=== PATIENT | male | born 1960 | race Caucasian/White ===

== ENCOUNTER 2019-02-25 08:19 | Day surgery (SDC) | payer OTHER ==
[2019-02-10 15:01] VITALS: BMI 27.8
[2019-02-25 09:44] VITALS: TEMP 97.5
[2019-02-25 10:55] VITALS: BP 135/72; PULSE 47
--- NOTE | 2019-02-26 17:39 | PATH ---
Surgical Pathology Report Patient Name: JOMAR BRAN [facility]. Rec. #: [id number] /Age/Gender: 1960 (Age: 59) / M Account: [id number] Location: [facility]-ENDOSCOPY Taken: 02/25/2019 Received: 02/25/2019 Reported: 02/26/2019 Physicians: Meliton Borden M.D. Specimen(s) Received A: POLYP TRANSVERSE COLON B: POLYP SIGMOID Clinical History History of colon polyp Postoperative diagnosis: Colon polyp Final Diagnosis A. TRANSVERSE COLON, POLYP, BIOPSY: POLYPOID COLONIC MUCOSA WITH SMALL LYMPHOID AGGREGATE. B. SIGMOID COLON, POLYP, BIOPSY: COLONIC MUCOSA WITH MILD SUPERFICIAL HYPERPLASTIC FEATURES. Electronically Signed Leda Regan M.D. Gross Description A. Received in formalin, labeled "polyp transverse colon" is a malave, irregular portion of soft tissue measuring 0.3 cm. in greatest dimension. The specimen is submitted in toto in one cassette. B. Received in formalin, labeled "polyp sigmoid colon" is a malave, irregular portion of soft tissue measuring 0.3 cm. in greatest dimension. The specimen is submitted in toto in one cassette. DL/02/25/2019 saudi02/25/2019
== END 2019-02-25 10:35 | disposition home or self-care (01) ==
LOC: JASU-ENDO 08:19
PROVIDERS: ATTEND Internal Medicine Gastroenterology
PROC: 0DBL8ZX Excision of Transverse Colon, Via Natural or Artificial Opening Endoscopic, Diagnostic (ICD-10-PCS; 2019-02-25)
PROC: 0DBN8ZX Excision of Sigmoid Colon, Via Natural or Artificial Opening Endoscopic, Diagnostic (ICD-10-PCS; principal; 2019-02-25 09:45)
DX: Z12.11 Encounter for screening for malignant neoplasm of colon (principal); Z86.010 Personal history of colon polyps; D12.5 Benign neoplasm of sigmoid colon; D12.3 Benign neoplasm of transverse colon; I10 Essential (primary) hypertension; E11.9 Type 2 diabetes mellitus without complications; Z79.84 Long term (current) use of oral hypoglycemic drugs
CPT/HCPCS: 82962; 88305-TC

== ENCOUNTER 2020-02-24 07:12 | Inpatient (IN) | payer OTHER ==
[2020-02-24] MEDS ORDERED: SODIUM CHLORIDE 1,000 ML IV STA (07:34)
[2020-02-24 08:17] LABS: BASO % 0.6 % (0-2.0); EOS % 1.2 % (0-4.5); HEMATOCRIT 43.3 % (35.4-49); HEMOGLOBIN 15.1 GM/dL (11.7-16.9); MCH 29.8 pg (25.7-33.7); MCHC 34.8 g/dl (32.0-35.9); MEAN CELL VOLUME 85.6 fl (80-96); MONO % 6.3 % (3.8-10.2); NEUT % 73.9 % (42.8-82.8); PLATELET COUNT 159 K/MM3 (134-434); RBC 5.06 M/mm3 (4.00-5.60); RDW 13.4 % (11.9-15.9); WHITE BLOOD COUNT 7.3 K/mm3 (4.0-10.0)
[2020-02-24 08:24] LABS: INR 0.97 (0.83-1.09); PROTHROMBIN TIME (PATIENT) 11.7 SEC (9.7-13.0)
[2020-02-24 08:26] LABS: ACTIVATED PTT 32.8 SECONDS (25.2-36.5)
[2020-02-24 08:29] LABS: EPI CELLS 2 /uL (0-25.1); HYALINE CASTS 0 /uL (0-3.1); URINE APPEARANCE CLEAR; URINE BACTERIA 4 /uL (0-1359); URINE BILIRUBIN NEGATIVE (NEGATIVE); URINE COLOR YELLOW; URINE GLUCOSE (UA) TRACE (NEGATIVE); URINE KETONE NEGATIVE (NEGATIVE); URINE LEUK ESTERASE NEGATIVE (NEGATIVE); URINE NITRITE NEGATIVE (NEGATIVE); URINE PROTEIN 2+ (NEGATIVE); URINE RBC 7 /uL (0-23.9); URINE UROBILINOGEN 0.2 mg/dL (0.2-1.0); URINE WBC 2 /uL (0-25.8)
[2020-02-24 08:40] LABS: POTASSIUM 3.4 mmol/L (3.5-5.1)
[2020-02-24 08:44] LABS: ALBUMIN 3.5 g/dl (3.4-5.0); CALCIUM 8.9 mg/dL (8.5-10.1)
[2020-02-24 08:45] LABS: BLOOD UREA NITROGEN 16.9 mg/dL (7-18); MAGNESIUM 1.8 mg/dL (1.8-2.4)
[2020-02-24 08:48] LABS: CREATININE 1.2 mg/dL (0.55-1.3)
[2020-02-24 08:49] LABS: BILIRUBIN,TOTAL 0.7 mg/dL (0.2-1); TOT PROT 7.4 g/dl (6.4-8.2)
[2020-02-24] MEDS ORDERED: MECLIZINE HCL 25 MG TABLET (FP) PO ONE (09:30)
[2020-02-24] MEDS ORDERED: ASPIRIN 325 MG TABLET PO ONE (09:33)
[2020-02-24] MEDS ORDERED: ATORVASTATIN CA 80 MG TABLET (FP) PO ONE (09:34)
[2020-02-24] MEDS ORDERED: ATORVASTATIN CA 80 MG TABLET (FP) ONE (10:47)
[2020-02-24] MEDS ORDERED: ASPIRIN 325 MG ENTERIC COATED TABLET (FP) ONE (10:47)
[2020-02-24] MEDS ORDERED: MECLIZINE HCL 25 MG TABLET (FP) ONE (10:47)
[2020-02-24] MEDS ORDERED: PATIENT'S OWN MEDICATION (NON-FORMULARY) (Lisinopril/Hydrochlorothiazide [Lisinopril-Hctz PO SCH ×2 (12:15→22:00)
[2020-02-24] MEDS ORDERED: MECLIZINE HCL 25 MG TABLET (FP) PO PRN (16:52)
[2020-02-24] MEDS ORDERED: POTASSIUM CHLORIDE TABS 20 MEQ TABLET.ER (FP) PO ONE (16:55)
[2020-02-24] MEDS: INSULIN SLIDING SCALE (NOVOLOG) 1 VIAL SQ SCH ×2 (17:10→22:36)
[2020-02-24] MEDS ORDERED: POTASSIUM CHLORIDE TABS 10 MEQ TABLET.ER (FP) ONE (17:11)
[2020-02-24 19:26] LABS: BASO % 0.6 % (0-2.0); EOS % 1.4 % (0-4.5); HEMATOCRIT 41.6 % (35.4-49); HEMOGLOBIN 14.1 GM/dL (11.7-16.9); MCH 29.1 pg (25.7-33.7); MCHC 33.9 g/dl (32.0-35.9); MEAN CELL VOLUME 85.9 fl (80-96); MEAN PLT VOLUME 10.5 fl (7.5-11.1); MONO % 7.9 % (3.8-10.2); NEUT % 64.1 % (42.8-82.8); PLATELET COUNT 162 K/MM3 (134-434); RBC 4.85 M/mm3 (4.00-5.60); RDW 13.4 % (11.9-15.9); WHITE BLOOD COUNT 6.7 K/mm3 (4.0-10.0)
[2020-02-24] MEDS ORDERED: LISINOPRIL 20 MG TABLET PO SCH (22:00)
[2020-02-24] MEDS ORDERED: HYDROCHLOROTHIAZIDE 25 MG TABLET (FP) PO SCH (22:00)
[2020-02-24] MEDS ORDERED: INSULIN (LEVEMIR) 100 UNITS/ML UNITS SQ SCH (22:00)
[2020-02-24] MEDS ORDERED: ATORVASTATIN CA 20 MG TABLET (FP) PO SCH (22:00)
[2020-02-24] MEDS: INSULIN (LEVEMIR) 100 UNITS/ML UNITS SQ SCH (22:37)
[2020-02-25 02:28] VITALS: BMI 27.4
[2020-02-25] MEDS ORDERED: INSULIN (NOVOLOG) ASPART 100 UNITS/ML 10ML VIAL ONE ×2 (05:51→12:26)
[2020-02-25] MEDS: INSULIN SLIDING SCALE (NOVOLOG) 1 VIAL SQ SCH ×4 (06:21→22:27)
[2020-02-25 08:14] LABS: HEMATOCRIT 42.4 % (35.4-49); HEMOGLOBIN 14.1 GM/dL (11.7-16.9); MCH 28.5 pg (25.7-33.7); MCHC 33.2 g/dl (32.0-35.9); MEAN CELL VOLUME 85.8 fl (80-96); MEAN PLT VOLUME 10.3 fl (7.5-11.1); PLATELET COUNT 160 K/MM3 (134-434); RBC 4.94 M/mm3 (4.00-5.60); RDW 13.2 % (11.9-15.9); WHITE BLOOD COUNT 7.9 K/mm3 (4.0-10.0)
[2020-02-25 08:27] LABS: POTASSIUM 3.3 mmol/L (3.5-5.1)
[2020-02-25 08:29] LABS: BLOOD UREA NITROGEN 16.7 mg/dL (7-18); CALCIUM 9.1 mg/dL (8.5-10.1); MAGNESIUM 2.1 mg/dL (1.8-2.4)
[2020-02-25 08:33] LABS: CREATININE 1.2 mg/dL (0.55-1.3); PHOSPHOROUS 3.9 mg/dL (2.5-4.9)
[2020-02-25 08:34] LABS: TRIGLYCERIDES 95 mg/dL (0-150)
[2020-02-25 08:35] LABS: HDL CHOLESTEROL 38 mg/dL (40-60); LDL CHOLESTEROL (ONLY SJRH) 32 mg/dL (5-100)
[2020-02-25 08:38] LABS: CHOLESTEROL 74 mg/dL (50-200)
[2020-02-25] MEDS: HYDROCHLOROTHIAZIDE 25 MG TABLET (FP) PO SCH (09:51)
[2020-02-25] MEDS: ENOXAPARIN NA (PORCINE) 40 MG/0.4 ML DISP.SYRIN SQ SCH (09:51)
[2020-02-25] MEDS: LISINOPRIL 20 MG TABLET PO SCH (09:51)
[2020-02-25] MEDS ORDERED: LISINOPRIL 20 MG TABLET PO SCH (10:00)
[2020-02-25] MEDS ORDERED: HYDROCHLOROTHIAZIDE 25 MG TABLET (FP) PO SCH (10:00)
[2020-02-25] MEDS ORDERED: POTASSIUM CHLORIDE TABS 20 MEQ TABLET.ER (FP) PO ONE (10:13)
[2020-02-25] MEDS: amLODIPine BESYLATE 5 MG TABLET (FP) PO SCH (15:01)
[2020-02-25] MEDS: MECLIZINE HCL 25 MG TABLET (FP) PO SCH ×2 (17:22→23:35)
[2020-02-25] MEDS: INSULIN (LEVEMIR) 100 UNITS/ML UNITS SQ SCH (22:27)
[2020-02-25] MEDS: ATORVASTATIN CA 20 MG TABLET (FP) PO SCH (22:28)
[2020-02-25] MEDS ORDERED: PT OWN MED DRAWER 7, Y5N ONE (23:33)
[2020-02-26] MEDS ORDERED: PT OWN MED DRAWER 7, Y5N ONE ×5 (05:36→20:45)
[2020-02-26] MEDS: MECLIZINE HCL 25 MG TABLET (FP) PO SCH ×3 (05:50→17:14)
[2020-02-26] MEDS: INSULIN SLIDING SCALE (NOVOLOG) 1 VIAL SQ SCH ×4 (06:06→21:32)
[2020-02-26 07:51] LABS: POTASSIUM 3.3 mmol/L (3.5-5.1)
[2020-02-26 07:53] LABS: CALCIUM 9.2 mg/dL (8.5-10.1)
[2020-02-26 07:54] LABS: ALBUMIN 3.3 g/dl (3.4-5.0); BLOOD UREA NITROGEN 17.7 mg/dL (7-18)
[2020-02-26 07:55] LABS: BASO % 0.5 % (0-2.0); EOS % 0.5 % (0-4.5); HEMATOCRIT 42.8 % (35.4-49); HEMOGLOBIN 14.1 GM/dL (11.7-16.9); LYMPH % 14.5 % (8-40); MAGNESIUM 1.9 mg/dL (1.8-2.4); MCH 28.4 pg (25.7-33.7); MEAN CELL VOLUME 86.2 fl (80-96); MEAN PLT VOLUME 10.8 fl (7.5-11.1); MONO % 8.8 % (3.8-10.2); NEUT % 75.7 % (42.8-82.8); PLATELET COUNT 155 K/MM3 (134-434); RBC 4.97 M/mm3 (4.00-5.60); RDW 13.7 % (11.9-15.9); WHITE BLOOD COUNT 9.9 K/mm3 (4.0-10.0)
[2020-02-26 07:57] LABS: CREATININE 1.3 mg/dL (0.55-1.3)
[2020-02-26 07:58] LABS: BILIRUBIN,TOTAL 0.7 mg/dL (0.2-1); TOT PROT 6.8 g/dl (6.4-8.2)
[2020-02-26] MEDS ORDERED: POTASSIUM CHLORIDE TABS 20 MEQ TABLET.ER (FP) PO ONE (08:15)
[2020-02-26] MEDS ORDERED: SODIUM CHLORIDE 500 ML IV STA (09:16)
[2020-02-26] MEDS: HYDROCHLOROTHIAZIDE 25 MG TABLET (FP) PO SCH (09:32)
[2020-02-26] MEDS: amLODIPine BESYLATE 5 MG TABLET (FP) PO SCH (09:32)
[2020-02-26] MEDS: LISINOPRIL 20 MG TABLET PO SCH (09:32)
[2020-02-26] MEDS: ENOXAPARIN NA (PORCINE) 40 MG/0.4 ML DISP.SYRIN SQ SCH (09:32)
[2020-02-26] MEDS: ATORVASTATIN CA 20 MG TABLET (FP) PO SCH (21:31)
[2020-02-26] MEDS: INSULIN (LEVEMIR) 100 UNITS/ML UNITS SQ SCH (21:31)
[2020-02-27] MEDS: MECLIZINE HCL 25 MG TABLET (FP) PO SCH ×3 (00:24→12:07)
[2020-02-27] MEDS: INSULIN SLIDING SCALE (NOVOLOG) 1 VIAL SQ SCH ×2 (06:29→11:19)
[2020-02-27 08:14] LABS: BASO % 0.8 % (0-2.0); EOS % 0.2 % (0-4.5); HEMOGLOBIN 14.5 GM/dL (11.7-16.9); LYMPH % 27.2 % (8-40); MCH 28.9 pg (25.7-33.7); MCHC 33.6 g/dl (32.0-35.9); MEAN CELL VOLUME 85.9 fl (80-96); MEAN PLT VOLUME 10.7 fl (7.5-11.1); MONO % 14.4 % (3.8-10.2); NEUT % 57.4 % (42.8-82.8); PLATELET COUNT 149 K/MM3 (134-434); RBC 5.01 M/mm3 (4.00-5.60); RDW 13.2 % (11.9-15.9); WHITE BLOOD COUNT 5.6 K/mm3 (4.0-10.0)
[2020-02-27] MEDS ORDERED: amLODIPine BESYLATE 5 MG TABLET (FP) PO SCH (08:42)
[2020-02-27] MEDS: HYDROCHLOROTHIAZIDE 25 MG TABLET (FP) PO SCH (09:10)
[2020-02-27] MEDS: ENOXAPARIN NA (PORCINE) 40 MG/0.4 ML DISP.SYRIN SQ SCH (09:10)
[2020-02-27] MEDS: LISINOPRIL 20 MG TABLET PO SCH (09:10)
[2020-02-27 09:43] LABS: POTASSIUM 3.2 mmol/L (3.5-5.1)
[2020-02-27 09:57] LABS: BLOOD UREA NITROGEN 15.9 mg/dL (7-18)
[2020-02-27 09:58] LABS: ALBUMIN 3.2 g/dl (3.4-5.0)
[2020-02-27 09:59] LABS: CALCIUM 8.6 mg/dL (8.5-10.1)
[2020-02-27 10:01] LABS: MAGNESIUM 2.1 mg/dL (1.8-2.4)
[2020-02-27 10:03] LABS: CREATININE 1.3 mg/dL (0.55-1.3)
[2020-02-27 10:04] LABS: BILIRUBIN,TOTAL 0.6 mg/dL (0.2-1)
[2020-02-27 10:05] LABS: TOT PROT 6.9 g/dl (6.4-8.2)
[2020-02-27] MEDS ORDERED: POTASSIUM CHLORIDE TABS 20 MEQ TABLET.ER (FP) PO ONE (10:45)
[2020-02-27 14:35] VITALS: BP 139/76; PULSE 65; TEMP 98.3
== END 2020-02-27 14:48 | disposition home health service (06) | DRG 111 ==
LOC: JER 07:12 → JERBED 10:03 → INTOOBSV 10:03 → J8W 02-25 00:57 → OBSVTOIN 02-26 13:44
PROVIDERS: ATTEND Nurse Practitioner Family
DX: H83.09 Labyrinthitis, unspecified ear (principal); I10 Essential (primary) hypertension; R26.81 Unsteadiness on feet; H81.10 Benign paroxysmal vertigo, unspecified ear; E11.40 Type 2 diabetes mellitus with diabetic neuropathy, unspecified; A53.9 Syphilis, unspecified; E87.6 Hypokalemia; E11.65 Type 2 diabetes mellitus with hyperglycemia; E78.5 Hyperlipidemia, unspecified; W06.XXXA Fall from bed, initial encounter; Y92.098 Other place in other non-institutional residence as the place of occurrence of the external cause; Z86.11 Personal history of tuberculosis
CPT/HCPCS: 36415; 70450-TC; 70544-TC; 70547-TC; 70551-TC; 71045-TC-FY; 72125-TC; 80048; 80053; 80061; 81003; 82550; 82553; 82962; 83036; 83721; 83735; 84100; 84443; 84484; 85025; 85027; 85610; 85730; 86593; 86780; 87086; 93005; 93010; 93306-TC; 97116-GP; 97162-GP; 99285-25; C9803; G0378; U0003